=== PATIENT | male | born 1990 | race African-American/Black ===

== ENCOUNTER 2022-08-20 16:59 | Emergency (ER) | payer OTHER ==
[2022-08-20] MEDS ORDERED: cefTRIAXone\\ROCEPHIN 500 MG VIAL ONE (17:54)
[2022-08-20 18:25] LABS: Bacteria/HPF None Seen HPF (None Seen); Bilirubin Negative (Negative); Blood, Urine Negative (Negative); Calcium Oxalate Crystals 1+ HPF (None Seen); Clarity Clear (Clear); Glucose, Urine (Dipstick) 30 mg/dL (Negative); Ketone, Urine Trace mg/dL (Negative); Leukocyte Negative Leu/uL (Negative); Nitrite Negative (Negative); Protein, Urine (Dipstick) 30 mg/dL (Neg-Trace); RBC/HPF 0-3 HPF (0-3); Specific Gravity, Urine 1.037 (1.002-1.036); Squamous Epithelial None Seen HPF (0-3); Urobilinogen 6 mg/dL (Less than 2); WBC/HPF 0-3 HPF (0-3)
[2022-08-20 21:47] LABS: Chlam.trachomatis by PCR,Urine Not Detected (NotDetected)
== END 2022-08-20 18:20 | disposition home or self-care (01) ==
LOC: ERS 16:59
DX: N34.2 Other urethritis (principal)
CPT/HCPCS: 81003; 81015; 87491; 87591; 96372; 99283; J0696